=== PATIENT | female | born 1975 | race African-American/Black ===

== ENCOUNTER 2021-09-02 02:52 | Emergency (ER) | payer BC, SELFPAY ==
[2021-09-02 02:55] VITALS: BP 120/80; PULSE 107; RESP 18; TEMP 36.7; O2SAT 100
--- NOTE | 2021-09-02 03:59 | PC.NURSE ---
Pt c/o fever, rhodes, chills, body aches since yesterday. missed work today. no s/s of acute distress.
[2021-09-02] MEDS: ACETAMINOPHEN 500 MG TABLET 1000 MG PO (04:24)
[2021-09-02 05:22] VITALS: BP 108/80; PULSE 101; RESP 18; O2SAT 96
--- NOTE | 2021-09-02 05:44 | ED.FEVER ---
HPI - Fever General Chief Complaint: Fever Stated Complaint: headache, body ache Time Seen by Provider: 09/02/21 03:39 History of Present Illness HPI Narrative: Patient is a 46-year-old female who presents ER with sudden onset fever and sore throat. Began 12 hours ago. Highest temperature was 100.6 ?F. No difficulty breathing or swallowing but does have pain back to the throat. No cough. No known sick contacts. No sinus congestion. She is vaccinated against Covid. She endorses body aches. Related Data Allergies Allergy/AdvReac Type Severity Reaction Status Date / Time No Known Allergies Allergy Unverified 02/25/18 09:22 Review of Systems Review of Systems: All systems reviewed & are unremarkable except as noted in HPI and below Constitutional: Constitutional: Reports chills, Reports fatigue and Reports fever(s) ENT: Denies nasal congestion and Reports sore throat Respiratory: Respiratory: Denies cough, Denies dyspnea and Denies wheezing Gastrointestinal: Gastrointestinal: Denies abdominal pain, Denies nausea and Denies vomiting Musculoskeletal: Musculoskeletal: Denies back pain, Reports myalgias and Denies muscle cramps PMFSH Past Medical History Medical History (Updated 09/02/21 @ 05:47 by Modesto Victoria MD) Healthy female adult Surgical History Surgical History (Updated 09/02/21 @ 05:46 by Modesto Victoria MD) No pertinent past surgical history Social History Social History (Updated 09/02/21 @ 05:46 by Modesto Victoria MD) Social History: History of social tobacco use. Exam Narrative: GENERAL: Well-appearing, well-nourished, and in no acute distress. HEAD: Normocephalic, atraumatic. ENT: Mucous membranes moist. Erythematous posterior oropharynx without tonsillar fear exudate. NECK: Supple. CHEST: Clear to auscultation. No respiratory distress. HEART: Tachycardic and regular. Normal peripheral pulses. EXTREMITIES: Normal range of motion. No edema. NEURO: Alert and oriented x3. PSYCH: Normal mood and affect. Course [employer]/PA Physician Supervision Strep positive discharge home. Vital Signs Vital signs: Vital Signs Temperature 98.1 F 09/02/21 02:55 Pulse Rate 107 H 09/02/21 02:55 Respiratory Rate 18 09/02/21 02:55 Blood Pressure 120/80 09/02/21 02:55 Pulse Oximetry 100 09/02/21 02:55 Temperature 98.1 F 09/02/21 02:55 Pulse Rate 101 H 09/02/21 05:22 Respiratory Rate 18 09/02/21 05:22 Blood Pressure 108/80 09/02/21 05:22 Pulse Oximetry 96 09/02/21 05:22 MDM - Fever Lab Data Labs: Strep Screen Positive Group A Strep *(Reference Range: Negative)* Discharge Plan Discharge Clinical Impression: Strep throat Patient Disposition: Home, Self-Care Condition: Stable Instructions: Antibiotic Form, Strep Throat (ED) Additional Instructions: Return the ER if you cannot keep down food or water, you have chest pain shortness of breath, you lose consciousness, have additional concerns. You may return to work in 24 hours after taking antibiotics. Prescriptions: New amoxicillin-pot clavulanate [Augmentin] 875-125 mg tablet 1 tablet PO Q12H Qty: 20 RF: 0 Follow-up/Referrals: Shane,HEBERT Miranda-C [Primary Care Provider] - 1 Week Stand Alone Forms: Work/School Release IP
[2021-09-02 06:00] VITALS: PULSE 99; TEMP 36.7
== END 2021-09-02 06:02 | disposition home or self-care (01) ==
PROVIDERS: Emergency Provider Emergency Medicine; PCP Nurse Practitioner
DX: J02.0 Streptococcal pharyngitis (principal)
CPT/HCPCS: 87880; 99283; A9270

== ENCOUNTER 2023-03-11 12:46 | Emergency (ER) | payer SELFPAY ==
--- NOTE | ~2023-03-11 | CT_ITS ---
EXAMINATION: CT brain wo con DATE: 03/11/2023 14:01 INDICATION: Headache. Head injury. Blurred vision. TECHNIQUE: Computed tomography (CT) of the head was performed without intravenous contrast. The mA wa s adjusted according to patient size. Iterative reconstruction technique was employed. The dose-lengt h product was 681.00 mGy-cm. COMPARISON: None FINDINGS: There is an old lacunar infarct in right caudate nucleus. There is no intracranial hemorrha ge, acute infarction, or abnormal intracranial mass lesion. The ventricles are normal in size. The or bits are normal. The paranasal sinuses are clear. The mastoid air cells are normal. IMPRESSION: 1. 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 Reviewed, dictated and finalized at location A.
[2023-03-11 12:53] VITALS: BP 121/83; PULSE 87; RESP 18; TEMP 36.1; O2SAT 100
[2023-03-11 13:36] VITALS: O2SAT 99
--- NOTE | 2023-03-11 13:57 | ED.HEATRA ---
HPI - Head Injury General Chief complaint: Head Injury Stated complaint: head injury Time Seen by Provider: 03/11/23 13:37 History of Present Illness HPI Narrative: This 48-year-old female patient with a significant past medical history related to today's complaint presents to the emergency room with complaints of having sustained a ground level fall when she tripped attempting to ambulate in darkness and fell forward striking her left forehead on her dresser in her bedroom. There was no loss of consciousness, and this injury occurred 2 days ago. Patient endorsed vomiting the night of the injury but has not had any since. Patient states that she has however had continued headache with blurry vision and photophobia. She denies any neck pain or other injuries. Related Data Allergies Allergy/AdvReac Type Severity Reaction Status Date / Time No Known Allergies Allergy Verified 03/11/23 12:47 Review of Systems Review of Systems: See HPI All systems reviewed & are unremarkable except as noted in HPI and below PMFSH Past Medical History Medical History Healthy female adult Surgical History Surgical History No pertinent past surgical history Social History Social History Social History: History of social tobacco use. Exam Const: General: healthy appearing, no acute distress and alert Nutritional Appearance: well nourished Orientation/consciousness: patient oriented x3 Limitations: no limitations HENMT: Head: normal to inspection Face/Nose/Sinus: Normal external nose present Mouth: Yes Normal oral and palatal mucosa present Throat: posterior oropharynx normal Eyes: Conjunctivae: conjunctivae normal Pupils: Equal, round and reactive pupils present EOM: EOMs intact bilaterally Neck: Neck: normal visual inspection and no lymphadenopathy Chest: Chest palpation & inspection: normal inspection of the chest and no tenderness Resp: Effort & Inspection: normal respiratory effort Auscultation: clear to auscultation bilaterally Cardio: Rate: regular rate Rhythm: regular rhythm Heart sounds: no murmurs GI: Inspection: non-distended GI Palp: Yes Soft to palpation and No Tenderness to palpation present (GI) Auscultation: normal bowel sounds Back/Spine/Pelvis: Back: no CVA tenderness Skin: General skin exam: normal color Rashes: no rashes Wounds: no wounds Neuro: General: patient oriented x3, moves all extremities, no meningeal signs and no focal motor deficits Cranial nerves: Yes CN's II-XII intact bilaterally Speech: normal speech Gait exam (Neuro): Normal gait present Extrem: General: normal to inspection, no clubbing, cyanosis or edema and no edema Other: freely and equally moves all extremities well Psych: Mental Status: mental status grossly normal Affect: normal affect Course Course Emergency Course: imaging was performed and there were no acute findings identified on CT of the brain. Patient was treated conservatively for pain. She will be discharged home with advice to continue conservative management as needed and to get rest. She should follow up with primary care physician for concussive type symptoms. CT did show a potential older caudate nucleus infarct. Patient has no mention of this in her history. Will have her follow up with primary care physician. Vital Signs Vital signs: Vital Signs Temperature 97.0 F L 03/11/23 12:53 Pulse Rate 87 03/11/23 12:53 Respiratory Rate 18 03/11/23 12:53 Blood Pressure 121/83 03/11/23 12:53 Pulse Oximetry 100 03/11/23 12:53 Temperature 97.0 F L 03/11/23 12:53 Pulse Rate 87 03/11/23 12:53 Respiratory Rate 18 03/11/23 12:53 Blood Pressure 121/83 03/11/23 12:53 Pulse Oximetry 99 03/11/23 13:36 Oxygen Delivery Room Air 03/11/23
[2023-03-11] MEDS: ACETAMINOPHEN 500 MG TABLET 1000 MG PO (14:06)
[2023-03-11 14:36] VITALS: BP 124/92; PULSE 75; RESP 16; O2SAT 100
== END 2023-03-11 14:38 | disposition home or self-care (01) ==
LOC: ANHED 14:33
PROVIDERS: Emergency Provider Nurse Practitioner Adult Health; PCP Nurse Practitioner
DX: S06.0X0A Concussion without loss of consciousness, initial encounter (principal); W01.190A Fall on same level from slipping, tripping and stumbling with subsequent striking against furniture, initial encounter
CPT/HCPCS: 70450; 99284; A9270

== ENCOUNTER 2023-04-09 09:03 | Emergency (ER) | payer SELFPAY ==
--- NOTE | ~2023-04-09 | XR_ITS ---
EXAMINATION: XR lumbar spine 2-3V DATE: 04/09/2023 09:49 INDICATION: Low back pain. TECHNIQUE: 3 views of lumbar spine were obtained. COMPARISON: None. FINDINGS: Bone alignment is normal. There is mild chronic anterior wedging of L1 and T2 vertebral bod ies, likely physiologic. There are endplate osteophytes at multiple levels. Intervertebral disc heigh ts are normal. The facet joints are unremarkable. IMPRESSION: 1. Mild lumbar spondylosis. Reviewed, dictated and finalized at location L. IMPRESSION: 1. Mild lumbar spondylosis.
--- NOTE | ~2023-04-09 | XR_ITS ---
EXAMINATION: XR chest 2V DATE: 04/09/2023 09:48 INDICATION: Chest pain. TECHNIQUE: Frontal and lateral views of the chest were obtained. COMPARISON: None. FINDINGS: There is no pneumonia, pleural effusion, or pneumothorax. The heart size is normal. IMPRESSION: 1. No acute cardiopulmonary disease. Reviewed, dictated and finalized at location L.
[2023-04-09 09:06] VITALS: BP 136/92; PULSE 70; RESP 16; TEMP 36.8; O2SAT 100
--- NOTE | 2023-04-09 09:13 | ECG_ITS ---
Measurements Intervals Gordon Rate: 68 P: 54 FL: 162 QRS: 15 QRSD: 76 T: 27 QT: 379 QTc: 405 Interpretive Statements SINUS RHYTHM NO PREVIOUS ECG AVAILABLE FOR COMPARISON Electronically Signed On 04-09-2023 10:19:30 CDT by Jodi Shearer M.D.
--- NOTE | 2023-04-09 09:15 | ED.CHESTPAIN ---
HPI - Chest Pain General Chief Complaint: Chest Pain Stated Complaint: chest pain Time Seen by Provider: 04/09/23 09:12 Source: patient Mode of arrival: ambulatory Limitations: no limitations History of Present Illness HPI narrative: This is a 48-year-old female that presents to the emergency department for chest pain ongoing over the last hour. Reports a dull, pressure in the right upper chest and right lower back. Worse with palpation of the area. She took 2 baby aspirin with little relief. Denies fever, cough, shortness of breath, or lower extremity edema. Related Data Allergies Allergy/AdvReac Type Severity Reaction Status Date / Time No Known Allergies Allergy Verified 03/11/23 12:47 Review of Systems Review of Systems: CONSTITUTIONAL: Denies fever CARDIOVASCULAR: Reports chest pain. Denies palpitations, or edema. RESPIRATORY: Denies cough or dyspnea. MUSCULOSKELETAL: Reports back pain, joint pain, and myalgia. All systems reviewed & are unremarkable except as noted in HPI and below PMFSH Past Medical History Medical History Healthy female adult Surgical History Surgical History No pertinent past surgical history Social History Social History Social History: History of social tobacco use. Exam Narrative: GENERAL: Well-appearing, well-nourished, and in no acute distress. HEAD: Normocephalic, atraumatic. EYES: EOMI. NECK: No JVD CHEST: Clear to auscultation. No respiratory distress. No wheezes rales or rhonchi. Tender to palpation of the right, anterior upper chest wall HEART: Regular rate and rhythm. No murmur heard. Normal peripheral pulses. BACK: Tender to palpation of the right, lumbar paraspinal musculature EXTREMITIES: Normal range of motion. No edema. SKIN: Warm, dry, no rash. NEURO: No focal deficits. Alert and oriented x3. PSYCH: Normal mood and affect Course Course Emergency Course: Patient updated on work-up and agrees with plan of care Vital Signs Vital signs: Vital Signs Temperature 98.2 F 04/09/23 09:06 Pulse Rate 70 04/09/23 09:06 Respiratory Rate 16 04/09/23 09:06 Blood Pressure 136/92 H 04/09/23 09:06 Pulse Oximetry 100 04/09/23 09:06 Oxygen Delivery Room Air 04/09/23 09:06 Temperature 98.2 F 04/09/23 09:06 Pulse Rate 64 04/09/23 12:14 Respiratory Rate 18 04/09/23 12:14 Blood Pressure 110/60 04/09/23 12:14 Pulse Oximetry 100 04/09/23 12:14 Oxygen Delivery Room Air 04/09/23 09:06 MDM - Chest Pain MDM Narrative Medical decision making narrative: Patient presents to the emergency department for right-sided chest pain present since this morning. Pain does seem to be more musculoskeletal in nature. She is tender to palpation of the areas of pain. Her vitals are stable. She is in no acute distress. She reports improvement after a dose of Toradol. CBC shows mild normocytic anemia with hemoglobin of 11.9. Metabolic panel without concerning findings. EKG without acute ST changes and baseline and 3-hour troponin are negative. Chest x-ray without acute cardiopulmonary abnormality. PERC criteria negative. Patient also reporting some right sided lower back pain. No recent injuries or trauma. Lumbar spine x-ray shows mild lumbar spondylosis. Patient was updated on work-up and agrees with plan of care. Is to follow-up with primary provider. Her heart score is a 1. She was given warnings to return to the ER Differential Diagnosis Differential diagnosis: Likely stable angina, unstable angina pectoris, atypical chest pain and costochondritis Lab Data Attestation: I reviewed the patient's lab results. 04/09/23 09:20 04/09/23 09:20 Labs: Lab Results 04/09/23 04/09/23 04/09/23 Range/Units 09:20 09:21 12:08 WBC 5.3
[2023-04-09 09:26] LABS: Basophils Percent Auto 0.2 % (0.2-1.2); Eosinophils Absolute Auto 0.1 K/mm3 (0-0.3); Eosinophils Percent Auto 1.9 % (0-4.4); Hematocrit 36.2 % (37.0-47.0); Hemoglobin 11.9 g/dL (12.0-15.0); Immature Granulocyte Absolute 0.02 K/mm3 (0.00-0.031); Immature Granulocyte Percent A 0.4 % (0-0.5); Lymphocytes Absolute Auto 1.36 K/mm3 (0.9-3.2); Lymphocytes Percent Auto 25.8 % (18.3-44.2); Mean Corpuscular HGB Conc 32.9 g/dl (32-36); Mean Corpuscular Hemoglobin 27.9 pg (26-34); Mean Corpuscular Volume 84.8 fl (80-100); Mean Platelet Volume 11.2 fl (7.4-10.4); Monocytes Absolute Auto 0.3 K/mm3 (0.1-0.6); Monocytes Percent Auto 5.1 % (2.6-8.5); Neutrophils Absolute Auto 3.5 K/mm3 (1.3-6.7); Neutrophils Percent Auto 66.6 % (45.5-73.1); Platelet Count Result 274 k/mm3 (150-375); Red Blood Count 4.27 M/mm3 (4.2-5.4); Red Cell Distribution Width 14.8 % (11.5-14.5); White Blood Count 5.3 K/mm3 (4.5-10.0)
[2023-04-09] MEDS: KETOROLAC 15 MG/ML VIAL (*BKC) IV PUSH (09:29)
[2023-04-09 09:38] LABS: Partial Thromboplastin Time 28.8 SECONDS (22.3-36.8)
[2023-04-09 09:40] LABS: Alanine Aminotransferase 17 U/L (6-35); Alkaline Phosphatase 53 U/L (38-126); Anion Gap 5 mmol/L (8-16); Aspartate Amino Transferase 23 U/L (14-36); Bilirubin,Total 0.4 mg/dL (0.2-1.3); Blood Urea Nitrogen 9 mg/dL (7-17); Calcium 8.7 mg/dL (8.4-10.2); Carbon Dioxide 29 mmol/L (22-30); Chloride 104 mmol/L (98-107); Estimated CRCL calculation 57 ml/min; Estimated Glomerular Filt Rate > 60; Glucose 83 mg/dL (65-110); Lipase 98 U/L (23-300); Potassium 3.7 mmol/L (3.4-5.0); Sodium 138 mmol/L (137-145)
[2023-04-09 09:52] LABS: Troponin I < 0.012 ng/mL (0.000-0.034)
[2023-04-09 10:01] VITALS: BP 116/81; PULSE 61; RESP 16; O2SAT 100
[2023-04-09 11:00] VITALS: BP 118/89; PULSE 65; RESP 16; TEMP 36.8
[2023-04-09] MEDS: ACETAMINOPHEN 500 MG TABLET 1000 MG PO (11:59)
[2023-04-09 12:00] VITALS: BP 120/91; PULSE 63; RESP 16; TEMP 36.8; O2SAT 98
[2023-04-09 12:14] VITALS: BP 110/60; PULSE 64; RESP 18; O2SAT 100
[2023-04-09 12:36] LABS: Troponin I < 0.012 ng/mL (0.000-0.034)
[2023-04-09 12:45] VITALS: BP 105/68; PULSE 61; RESP 16; TEMP 36.8; O2SAT 100
== END 2023-04-09 13:03 | disposition home or self-care (01) ==
PROVIDERS: Emergency Provider Physician Assistant; PCP Nurse Practitioner
DX: R07.89 Other chest pain (principal)
CPT/HCPCS: 36415; 71046; 72100; 80053; 81025; 83690; 84484; 85025; 85610; 85730; 93005; 96374; 99284; A9270; J1885

== ENCOUNTER 2023-05-19 06:29 | Emergency (ER) | payer OTHER, SELFPAY ==
[2023-05-19 06:31] VITALS: BP 114/72; PULSE 74; RESP 15; TEMP 36.3; O2SAT 100
--- NOTE | 2023-05-19 09:11 | PC.NURSE ---
in room with pt and she is upset she has not seen ERP. Informed pt all ED rooms full and there is 1 ED provider until 0900 .Pt states this is crazy I'm going somewhere else and I'm going to hotline this.
== END 2023-05-19 09:16 | disposition left against medical advice (07) ==
PROVIDERS: PCP Nurse Practitioner
DX: J02.9 Acute pharyngitis, unspecified (principal)
CPT/HCPCS: 99199